=== PATIENT | female | born 1950 | race Caucasian/White ===

== ENCOUNTER 2017-08-29 07:16 | Observation (INO) | payer BC ==
[~2017-08-29] VITALS: Ht 172.7 cm; Wt 74.9 kg
[~2017-08-29 07:16] MED LIST: ARC10 PO; ASPI-435 PO; CETI10TA84 PO; FLUT220A INH; LEVO25TA PO; LVQ750 PO; MULTTAB58 PO; NMN10 PO
[2017-08-29] MEDS ORDERED: ACET-1311 PO ×2 (08:06)
[2017-08-29] MEDS ORDERED: SENN-61 PO (08:06)
[2017-08-29] MEDS ORDERED: MIRT1TAB27 PO (08:06)
[2017-08-29] MEDS ORDERED: MULT-878 PO (08:06)
[2017-08-29] MEDS ORDERED: BISA10SU3 PR (08:06)
[2017-08-29] MEDS ORDERED: FLVHFA110 INH (08:06)
[2017-08-29] MEDS ORDERED: SODIUM CHLORIDE 0.9% 1000ML 1,000 ML IV STA ×2 (08:21→09:50)
--- NOTE | 2017-08-29 08:29 | EMERGENCY ROOM VISIT NOTE ---
History Report prepared by [employer]: Brad Mann Under the Supervision of: Dr. Artemio Lew M.D. First contact with patient: 07:43 Chief Complaint: SEIZURE Stated Complaint: SEIZURE Nursing Triage Summary: Patient from [facility] with reported seizure. Patient is nonverbal with dementia. Patient appears to be in no distress at this time. History of Present Illness The patient is a 67 year old female who presents to the Emergency Room with complaints of an episode of generalized seizure-like activity occurring just prior to arrival. The patient is a resident at [facility]. She has a history of baseline dementia, and is typically non-verbal. She has no known history of seizures. The patient's seizure-like activity today is reported to have lasted for about four minutes. Patient nods "no" to having headache, abdominal pain, neck pain, back pain, or chest pain. HPI limited secondary to dementia. Source of History: patient, nursing staff History Limited By: dementia Onset: Just prior to arrival Position: other (Generalized) Symptom Intensity: Four minutes long Quality: other (seizure-like activity) Timing: other (episode) Associated Symptoms: No headache, No neck pain, No chest pain, No abdominal pain, No back pain Review of Systems ROS limited secondary to dementia. Past Medical & Surgical Medical Problems: (1) Alzheimers disease (2) Dementia (3) Incontinence (4) pneumonia, fall, dementia (5) possible seizure (6) Tremor Family History No pertinent family history Social History Smoking Status: Never Smoker Alcohol Use: none Marital Status: single Housing Status: halfway Occupation Status: disabled Current/Historical Medications Scheduled Acetaminophen (Tylenol), 650 MG PO AMHS Aspirin (Aspirin 81), 81 MG PO QAM Bisacodyl (Dulcolax), 1 SUPP [place] EVERY 3 DAYS Fluticasone Propionate (Flovent Hfa), 1 PUFFS INH BID Levothyroxine Sodium (Synthroid), 25 MCG PO QAM Memantine (Namenda), 10 MG PO AMHS Mirtazapine (Mirtazapine), 7.5 MG PO HS Multivitamins/Minerals (Cerovite Advanced Formula), 1 TAB PO DAILY Senna (Senokot), 3 TAB PO BID Scheduled PRN Acetaminophen (Tylenol), 650 MG PO Q4H PRN for Pain or Fever Allergies Coded Allergies: Latex (Unverified Allergy, Unknown, ., 06/25/15) Sulfadiazine (Unverified Allergy, Unknown, ., 06/25/15) Physical Exam Vital Signs Date Time Temp Pulse Resp B/P (MAP) Pulse Ox O2 Delivery O2 Flow Rate FiO2 08/29/17 09:36 123 16 137/100 94 Room Air 08/29/17 08:37 122 16 124/82 95 Room Air 08/29/17 07:28 37.1 123 23 145/99 95 Room Air Physical Exam GENERAL: Awake, alert, well-appearing, in no distress HENT: Normocephalic, atraumatic. Oropharynx unremarkable. EYES: Normal conjunctiva. Sclera non-icteric. NECK: Supple. No nuchal rigidity. FROM. No masses. RESPIRATORY: Clear to auscultation. No wheezes. CARDIAC: Normal rate. Normal rhythm. No murmurs. No rubs. Extremities warm and well perfused. Pulses equal. No JVD. GI: Soft, non-distended. No tenderness to palpation. No rebound or guarding. No masses. RECTAL: Deferred. MUSCULOSKELETAL: Atraumatic. Chest examination reveals no tenderness. The back is symmetrical on inspection without obvious abnormality. There is no CVA tenderness to palpation. No joint edema. Contracture of the left upper extremity. LOWER EXTREMITIES: Calves are equal size bilaterally and non-tender. No discoloration. Trace lower extremity edema. NEURO: Normal sensorium. No sensory or motor deficits noted. Non-verbal. SKIN: No rash or jaundice noted. Medical Decision & Procedures ER Provider Diagnostic Interpretation: Radiology results as stated below per my review and radiologist interpretation: CT OF THE HEAD WITHOUT CONTRAST FINDINGS: Exam is mildly compromised by motion artifact. No acute intracranial hemorrhage, midline shift or mass effect is present. There is moderate dilatation of the lateral and third ventricles which is proportional to sulcal enlargement and likely due to atrophy. The basilar cisterns are patent. There are no extra axial collections. A 1.3 cm inferior right basal ganglia hypodensity is unchanged and could reflect a prominent vascular space or old lacunar infarct. No calvarial fractures identified. There is an opacified left ethmoid air cell. IMPRESSION: 1. No acute intracranial findings. 2. Ventricular dilatation likely due to atrophy. 3. Study mildly compromised by motion artifact. Electronically signed by: River Vasquez M.D. 08/29/2017 9:07 AM CHEST ONE VIEW PORTABLE FINDINGS: Cardiomediastinal and hilar silhouettes are within normal limits. The patient is slightly rotated to the right. There is no pneumothorax, pleural effusion, focal airspace consolidation or overt pulmonary edema. Lungs are mildly hypoinflated. Bones of the chest appear to be grossly intact. IMPRESSION: Mild hypoinflation without acute process. The above report was generated using voice recognition software. It may contain grammatical, syntax or spelling errors. Electronically signed by: Christiano Patton M.D. 08/29/2017 8:51 AM Laboratory Results 08/29/17 07:25 Red Blood Count 4.30, Mean Corpuscular Volume 93.7, Mean Corpuscular Hemoglobin 30.0, Mean Corpuscular Hemoglobin Concent 32.0, Mean Platelet Volume 8.5, Neutrophils (%) (Auto) 65.1, Lymphocytes (%) (Auto) 25.5, Monocytes (%) (Auto) 5.0, Eosinophils (%) (Auto) 3.6, Basophils (%) (Auto) 0.2, Neutrophils # (Auto) 4.29, Lymphocytes # (Auto) 1.68, Monocytes # (Auto) 0.33, Eosinophils # (Auto) 0.24, Basophils # (Auto) 0.01 08/29/17 07:25 Test 08/29/17 07:25 08/29/17 08:04 White Blood Count 6.59 K/uL (4.8-10.8) Red Blood Count 4.30 M/uL (4.2-5.4) Hemoglobin 12.9 g/dL (12.0-16.0) Hematocrit 40.3 % (37-47) Mean Corpuscular Volume 93.7 fL (80-100) Mean Corpuscular Hemoglobin 30.0 pg (25-34) Mean Corpuscular Hemoglobin Concent 32.0 g/dl (32-36) Platelet Count 294 K/uL (130-400) Mean Platelet Volume 8.5 fL (7.4-10.4) Neutrophils (%) (Auto) 65.1 % Lymphocytes (%) (Auto) 25.5 % Monocytes (%) (Auto) 5.0 % Eosinophils (%) (Auto) 3.6 % Basophils (%) (Auto) 0.2 % Neutrophils # (Auto) 4.29 K/uL (1.4-6.5) Lymphocytes # (Auto) 1.68 K/uL (1.2-3.4) Monocytes # (Auto) 0.33 K/uL (0.11-0.59) Eosinophils # (Auto) 0.24 K/uL (0-0.5) Basophils # (Auto) 0.01 K/uL (0-0.2) RDW Standard Deviation 47.7 fL (36.4-46.3) RDW Coefficient of Variation 14.0 % (11.5-14.5) Immature Granulocyte % (Auto) 0.6 % Immature Granulocyte # (Auto) 0.04 K/uL (0.00-0.02) Prothrombin Time 11.4 SECONDS (9.0-12.0) Prothromb Time International Ratio 1.1 (0.9-1.1) Activated Partial Thromboplast Time 26.1 SECONDS (21.0-31.0) Partial Thromboplastin Ratio 1.0 Anion Gap 8.0 mmol/L (3-11) Est Creatinine Clear Calc Drug Dose 84.1 ml/min Estimated GFR () 100.2 Estimated GFR (Non- 86.4 BUN/Creatinine Ratio 18.4 (10-20) Calcium Level 9.0 mg/dl (8.5-10.1) Magnesium Level 1.9 mg/dl (1.8-2.4) Total Bilirubin 0.4 mg/dl (0.2-1) Direct Bilirubin 0.1 mg/dl (0-0.2) Aspartate Amino Transf (AST/SGOT) 15 U/L (15-37) Alanine Aminotransferase (ALT/SGPT) 15 U/L (12-78) Alkaline Phosphatase 78 U/L (45-117) Total Creatine Kinase 38 U/L (26-192) Creatine Kinase MB 0.7 ng/ml (0.5-3.6) Creatine Kinase MB Ratio 1.8 (0-3.0) Troponin I < 0.015 ng/ml (0-0.045) Total Protein 6.9 gm/dl (6.4-8.2) Albumin 3.2 gm/dl (3.4-5.0) Lipase 144 U/L (73-393) Thyroid Stimulating Hormone (TSH) 2.360 uIu/ml (0.300-4.500) Urine Color YELLOW Urine Appearance CLOUDY (CLEAR) Urine pH 5.5 (4.5-7.5) Urine Specific [place] 1.015 (1.000-1.030) Urine Protein 1+ (NEG) Urine Glucose (UA) NEG (NEG) Urine Ketones NEG (NEG) Urine Occult Blood TRACE (NEG) Urine Nitrite POS (NEG) Urine Bilirubin NEG (NEG) Urine Urobilinogen NEG (NEG) Urine Leukocyte Esterase LARGE (NEG) Urine WBC (Auto) >30 /hpf (0-5) Urine RBC (Auto) 5-10 /hpf (0-4) Urine Hyaline Casts (Auto) 5-10 /lpf (0-5) Urine Epithelial Cells (Auto) 0-5 /lpf (0-5) Urine Bacteria (Auto) 4+ (NEG) Laboratory results reviewed by me Medications Administered Medications (Trade) Dose Ordered Sig/Don Route Start Time Stop Time Status Last Admin Dose Admin Sodium Chloride 1,000 ml @ 125 mls/hr Q8H STAT IV 08/29/17 08:21 08/29/17 14:05 DC 08/29/17 08:21 125 MLS/HR Sodium Chloride 1,000 ml @ 999 mls/hr Q1H1M STAT IV 08/29/17 09:50 08/29/17 10:50 DC 08/29/17 09:50 999 MLS/HR Ceftriaxone Sodium (Rocephin Inj) 1 gm NOW STAT IV 08/29/17 09:50 08/29/17 09:52 DC 08/29/17 10:04 1 GM ECG Per My Interpretation Indication: other (seizure-like activity) Rate (beats per minute): 126 Rhythm: sinus tachycardia Findings: PVC, no acute ischemic change ED Course 0802: The patient was evaluated in room A3. A complete history and physical exam was performed. 0821: Ordered Sodium Chloride 1000 ml @ 125 mls/hr IV. 0950: Ordered Rocephin Inj 1 gm IV, Sodium Chloride 1000 ml @ 999 mls/hr IV. 1009: Upon reexamination, the patient was resting comfortably. Her friend has arrived and is at bedside. The patient's POA is being contacted. I discussed the test results and treatment plan with her. The patient will be evaluated for further management. Medical Decision Prior records/ancillary studies reviewed and summarized above. Nursing notes reviewed and agree them. Additional history obtained from nursing. The patient's history was concerning for possible seizure. Differential diagnosis: Etiologies such as seizure disorder, infection, hypoglycemia, electrolyte abnormalities, cardiac sources, intracerebral event, toxicologic, neurologic, as well as others were entertained. Physical examination: As above. The patient is nonverbal. Abdomen was benign. ER treatment provided: IV Lock Normal saline hydration at 125 an hour. IV Rocephin On reassessment the patient felt better. Diagnostics interpretation by me: ECG: Sinus tachycardia noted. The labs revealed an unremarkable CBC and chemistry panel. Urinalysis grossly abnormal concerning for infection. Imaging studies: CT scan and chest x-ray as above. The patient had a seizure like episode described at her nursing facility. She has a UTI. She has mild tachycardia. She had a benign abdomen. She denied any headache. Further evaluation and management in the hospital will be necessary. Consultation: A consultation was placed with the hospitalist. The case was discussed and diagnostics were reviewed. The patient was evaluated in the ER for further treatment. Medication Reconcilliation Current Medication List: was personally reviewed by me Blood Pressure Screening Patient's blood pressure: Normal blood pressure Blood pressure disposition: Did not require urgent referral Consults Time Called: 1000 Consulting Physician: Dr. Corinna Cunha [facility] Hospitalist Returned Call: [phone] Discussed the patient's case. The patient will be evaluated for further treatment and disposition. Impression Primary Impression: UTI (urinary tract infection) Additional Impression: Seizure-like activity Scribe Attestation The scribe's documentation has been prepared under my direction and personally reviewed by me in its entirety. I confirm that the note above accurately reflects all work, treatment, procedures, and medical decision making performed by me. Departure Information Dispostion Being Evaluated By Hospitalist Referrals Ondina Joseph M.D. (PCP) Patient Instructions My [facility] Problem Qualifiers
[2017-08-29 08:33] LABS: BASO % 0.2 %; BASO ABS # 0.01 K/uL (0-0.2); EOS % 3.6 %; EOS ABS # 0.24 K/uL (0-0.5); HEMATOCRIT 40.3 % (37-47); HEMOGLOBIN 12.9 g/dL (12.0-16.0); IG# 0.04 K/uL (0.00-0.02); LYMPH % 25.5 %; LYMPH ABS # 1.68 K/uL (1.2-3.4); MEAN CELL VOLUME 93.7 fL (80-100); MEAN PLATELET VOLUME 8.5 fL (7.4-10.4); MONO ABS # 0.33 K/uL (0.11-0.59); NEUT % 65.1 %; NEUT ABS # 4.29 K/uL (1.4-6.5); PLATELET COUNT 294 K/uL (130-400); RED CELL DISTRIBUTION WIDTH SD 47.7 fL (36.4-46.3); WHITE BLOOD COUNT 6.59 K/uL (4.8-10.8)
[2017-08-29 08:43] LABS: INR 1.1 (0.9-1.1); PTT PATIENT 26.1 SECONDS (21.0-31.0)
[2017-08-29 08:50] LABS: ALBUMIN 3.2 gm/dl (3.4-5.0); ALT/SGPT 15 U/L (12-78); BLOOD UREA NITROGEN 14 mg/dl (7-18); CARBON DIOXIDE 29 mmol/L (21-32); CREATININE 0.73 mg/dl (0.60-1.20); GLUCOSE 111 mg/dl (70-99); LIPASE 144 U/L (73-393); POTASSIUM 3.6 mmol/L (3.5-5.1); SODIUM 141 mmol/L (136-145)
--- NOTE | 2017-08-29 08:52 | DIAGNOSTIC IMAGING REPORT ---
CHEST ONE VIEW PORTABLE HISTORY: 67 years-old Female EVALUATE WEAKNESS acute weakness with seizure COMPARISON: Chest radiographs 06/27/2015 TECHNIQUE: Portable AP view of the chest FINDINGS: Cardiomediastinal and hilar silhouettes are within normal limits. The patient is slightly rotated to the right. There is no pneumothorax, pleural effusion, focal airspace consolidation or overt pulmonary edema. Lungs are mildly hypoinflated. Bones of the chest appear to be grossly intact. IMPRESSION: Mild hypoinflation without acute process. The above report was generated using voice recognition software. It may contain grammatical, syntax or spelling errors. Electronically signed by: Christiano Patton M.D. 08/29/2017 8:51 AM Dictated Date/Time: 08/29/2017 8:50 AM
[2017-08-29 08:59] LABS: ALKALINE PHOSPHATASE 78 U/L (45-117); AST/SGOT 15 U/L (15-37); CKMB 0.7 ng/ml (0.5-3.6); TOTAL PROTEIN 6.9 gm/dl (6.4-8.2)
--- NOTE | 2017-08-29 09:08 | DIAGNOSTIC IMAGING REPORT ---
CT OF THE HEAD WITHOUT CONTRAST CLINICAL HISTORY: Weakness. Seizure. COMPARISON STUDY: MRI of the brain June 22, [address] June 25, 2015. CT DOSE: 795.47 mGy.cm TECHNIQUE: Helical axial images of the head were obtained without IV contrast. Automated exposure control was utilized for the study. A dose lowering technique was utilized adhering to the principles of ALARA. FINDINGS: Exam is mildly compromised by motion artifact. No acute intracranial hemorrhage, midline shift or mass effect is present. There is moderate dilatation of the lateral and third ventricles which is proportional to sulcal enlargement and likely due to atrophy. The basilar cisterns are patent. There are no extra axial collections. A 1.3 cm inferior right basal ganglia hypodensity is unchanged and could reflect a prominent vascular space or old lacunar infarct. No calvarial fractures identified. There is an opacified left ethmoid air cell. IMPRESSION: 1. No acute intracranial findings. 2. Ventricular dilatation likely due to atrophy. 3. Study mildly compromised by motion artifact. Electronically signed by: River Vasquez M.D. 08/29/2017 9:07 AM Dictated Date/Time: 08/29/2017 9:03 AM
[2017-08-29] MEDS ORDERED: CEFTRIAXONE SOD INJ 1 GM ADDVIAL IV STA (09:50)
[2017-08-29] MEDS ORDERED: LORAZEPAM 2 MG/ML 1 ML VIAL IV PRN ×2 (10:45)
[2017-08-29] MEDS ORDERED: ACETAMINOPHEN 325 MG TAB PO PRN (10:45)
[2017-08-29] MEDS ORDERED: IV FLUIDS COMPLETED PRN (11:00)
--- NOTE | 2017-08-29 11:00 | History and Physical ---
History & Physical Date & Time of Service: Aug 29, 2017 at 10:54 Chief Complaint: Seizure Primary Care Physician: Ondina Joseph M.D. History of Present Illness Patient is transferred from [facility] with concern for seizure-like activity. The patient's friend is at the bedside and provides some information that she had a similar episode a few months ago when she is being transferred. 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 The patient's caregiver also notes that she has had a decline of late and medications have been withdrawn there have not been a formal discussion for palliative care at this time. Reportedly the patient had an episode of tonic-clonic movements at the nursing facility was not acting quite like herself. She is mostly nonverbal and a good day but she can nod and smile when appropriate. The patient cannot focally identify any issues or complaints at this time. An ER evaluation only revealed an abnormal urinalysis and the patient was given Rocephin and hydration Family History No pertinent family history Social History Smoking Status: Never Smoker Marital Status: single Occupational Status: disabled Allergies Coded Allergies: Latex (Unverified Allergy, Unknown, ., 06/25/15) Sulfadiazine (Unverified Allergy, Unknown, ., 06/25/15) Home Medications Scheduled Acetaminophen (Tylenol), 650 MG PO AMHS Aspirin (Aspirin 81), 81 MG PO QAM Bisacodyl (Dulcolax), 1 SUPP [place] EVERY 3 DAYS Fluticasone Propionate (Flovent Hfa), 1 PUFFS INH BID Levothyroxine Sodium (Synthroid), 25 MCG PO QAM Memantine (Namenda), 10 MG PO AMHS Mirtazapine (Mirtazapine), 7.5 MG PO HS Multivitamins/Minerals (Cerovite Advanced Formula), 1 TAB PO DAILY Senna (Senokot), 3 TAB PO BID Scheduled PRN Acetaminophen (Tylenol), 650 MG PO Q4H PRN for Pain or Fever Review of Systems Review of systems are unobtainable at this time due to the patient's nonverbal state, the patient's caregiver states that as mentioned she has been declining in her performance status and been taking less medications she is mildly incontinent of urine most days and constipated requiring significant bowel regimen Physical Exam Vital Signs Date Time Temp Pulse Resp B/P (MAP) Pulse Ox O2 Delivery O2 Flow Rate FiO2 08/29/17 09:36 123 16 137/100 94 Room Air 08/29/17 08:37 122 16 124/82 95 Room Air 08/29/17 07:28 37.1 123 23 145/99 95 Room Air General Appearance: WD/WN, no apparent distress Head: normocephalic, atraumatic Eyes: normal inspection, sclerae normal Neck: supple, thyroid normal Respiratory/Chest: chest non-tender, lungs clear (The patient has decreased breath sounds difficult to sit up and listen to her back) Cardiovascular: regular rate, rhythm, no murmur Abdomen/GI: normal bowel sounds, non tender, soft Extremities/Musculoskelatal: normal capillary refill, no pedal edema Neurologic/Psych: alert, + pertinent finding (Patient is nonverbal she can smile and nod) Skin: normal color, warm/dry, no rash Diagnostics Laboratory Results Results Past 24 Hours Test 08/29/17 07:25 08/29/17 08:04 Range/Units White Blood Count 6.59 4.8-10.8 K/uL Red Blood Count 4.30 4.2-5.4 M/uL Hemoglobin 12.9 12.0-16.0 g/dL Hematocrit 40.3 37-47 % Mean Corpuscular Volume 93.7 80-100 fL Mean Corpuscular Hemoglobin 30.0 25-34 pg Mean Corpuscular Hemoglobin Concent 32.0 32-36 g/dl Platelet Count 294 130-400 K/uL Mean Platelet Volume 8.5 7.4-10.4 fL Neutrophils (%) (Auto) 65.1 % Lymphocytes (%) (Auto) 25.5 % Monocytes (%) (Auto) 5.0 % Eosinophils (%) (Auto) 3.6 % Basophils (%) (Auto) 0.2 % Neutrophils # (Auto) 4.29 1.4-6.5 K/uL Lymphocytes # (Auto) 1.68 1.2-3.4 K/uL Monocytes # (Auto) 0.33 0.11-0.59 K/uL Eosinophils # (Auto) 0.24 0-0.5 K/uL Basophils # (Auto) 0.01 0-0.2 K/uL RDW Standard Deviation 47.7 36.4-46.3 fL RDW Coefficient of Variation 14.0 11.5-14.5 % Immature Granulocyte % (Auto) 0.6 % Immature Granulocyte # (Auto) 0.04 0.00-0.02 K/uL Prothrombin Time 11.4 9.0-12.0 SECONDS Prothromb Time International Ratio 1.1 0.9-1.1 Activated Partial Thromboplast Time 26.1 21.0-31.0 SECONDS Partial Thromboplastin Ratio 1.0 Sodium Level 141 136-145 mmol/L Potassium Level 3.6 3.5-5.1 mmol/L Chloride Level 104 98-107 mmol/L Carbon Dioxide Level 29 21-32 mmol/L Anion Gap 8.0 3-11 mmol/L Blood Urea Nitrogen 14 7-18 mg/dl Creatinine 0.73 0.60-1.20 mg/dl Est Creatinine Clear Calc Drug Dose 84.1 ml/min Estimated GFR () 100.2 Estimated GFR (Non- 86.4 BUN/Creatinine Ratio 18.4 10-20 Random Glucose 111 70-99 mg/dl Calcium Level 9.0 8.5-10.1 mg/dl Magnesium Level 1.9 1.8-2.4 mg/dl Total Bilirubin 0.4 0.2-1 mg/dl Direct Bilirubin 0.1 0-0.2 mg/dl Aspartate Amino Transf (AST/SGOT) 15 15-37 U/L Alanine Aminotransferase (ALT/SGPT) 15 12-78 U/L Alkaline Phosphatase 78 45-117 U/L Total Creatine Kinase 38 26-192 U/L Creatine Kinase MB 0.7 0.5-3.6 ng/ml Creatine Kinase MB Ratio 1.8 0-3.0 Troponin I < 0.015 0-0.045 ng/ml Total Protein 6.9 6.4-8.2 gm/dl Albumin 3.2 3.4-5.0 gm/dl Lipase 144 73-393 U/L Thyroid Stimulating Hormone (TSH) 2.360 0.300-4.500 uIu/ml Urine Color YELLOW Urine Appearance CLOUDY CLEAR Urine pH 5.5 4.5-7.5 Urine Specific [place] 1.015 1.000-1.030 Urine Protein 1+ NEG Urine Glucose (UA) NEG NEG Urine Ketones NEG NEG Urine Occult Blood TRACE NEG Urine Nitrite POS NEG Urine Bilirubin NEG NEG Urine Urobilinogen NEG NEG Urine Leukocyte Esterase LARGE NEG Urine WBC (Auto) >30 0-5 /hpf Urine Hyaline Casts (Auto) 5-10 0-5 /lpf Urine Epithelial Cells (Auto) 0-5 0-5 /lpf Urine Bacteria (Auto) 4+ NEG Microbiology Results 08/29/17 Urine Culture, Received Pending Diagnostic Radiology CT head normal with only age-related changes CXR normal other (EKG shows sinus tachycardia) Impression Assessment and Plan 67-year-old female with advanced dementia for her age she is now mostly nonverbal and functionally quadriparetic. The patient presents with seizure- like activity and abnormal urinalysis suggesting a urinary tract UTI POA infection present on admission Cultures are obtained patient is on IV Rocephin she will be hydrated with additional liter of crystalloid solution monitoring her CBC for leukocytosis For her dementia she will continue on her Namenda as previously at the long term For depression she is on extremely low dose of Remeron this will be continued For her functional quadriparesis the patient requires a Etta lift and fall precautions will be undertaken The patient will be on heparin for DVT prevention Patient is a history of asthma this is been stable for sometimes will continue to offer her her inhalers I asked the caregiver if palliative care would be in order she says she is just a caregiver her brother is power of propeller engineer this may offer us an opportunity for palliative care or polst Resuscitation Status VTE Prophylaxis Will order VTE Prophylaxis: Yes Social Service Consult Lives in Correction
[2017-08-29] MEDS ORDERED: LORAZEPAM INJ 0.5 MG in SYRINGE 0.75 ML IV PRN (14:00)
[2017-08-29] MEDS ORDERED: LORAZEPAM INJ 1 MG in SYRINGE 0.5 ML IV PRN (14:00)
[2017-08-29] MEDS ORDERED: SODIUM CHLORIDE 0.9% 1000ML 1,000 ML IV SCH (14:15)
[2017-08-29 14:20] VITALS: BP 131/71; PULSE 120; TEMP 37.4; O2SAT 94
[2017-08-29 14:22] VITALS: O2SAT 94; BMI 26.0
[2017-08-29 15:30] VITALS: BP 124/81; PULSE 109; TEMP 37; O2SAT 93
[2017-08-29 16:10] VITALS: O2SAT 93
[2017-08-29] MEDS: BOOST VANILLA PO SCH (21:39)
[2017-08-29] MEDS: FLUTICASONE HFA 110MCG INHALER INH SCH (21:40)
[2017-08-29] MEDS: SENNA 8.6 MG TAB PO SCH (21:42)
[2017-08-29] MEDS: MEMANTINE 10 MG TAB PO SCH (21:42)
[2017-08-29] MEDS: MIRTAZAPINE TAB 15 MG TAB PO SCH (21:42)
[2017-08-29] MEDS: HEPARIN SOD 5000 UNIT/0.5 ML CARP SQ SCH (22:05)
[2017-08-29 23:15] VITALS: BP 166/80; PULSE 98; TEMP 37.3; O2SAT 96
[2017-08-30] MEDS: LEVOTHYROXINE 25 MCG TAB PO SCH (05:58)
[2017-08-30 08:08] LABS: HEMATOCRIT 37.1 % (37-47); HEMOGLOBIN 12.1 g/dL (12.0-16.0); MEAN CELL VOLUME 92.3 fL (80-100); MEAN CORPUSCULAR HEMOGLOBIN 30.1 pg (25-34); MEAN CORPUSCULAR HGB CONC 32.6 g/dl (32-36); MEAN PLATELET VOLUME 8.3 fL (7.4-10.4); PLATELET COUNT 268 K/uL (130-400); RED CELL DISTRIBUTION WIDTH CV 13.8 % (11.5-14.5); RED CELL DISTRIBUTION WIDTH SD 46.8 fL (36.4-46.3); WHITE BLOOD COUNT 8.54 K/uL (4.8-10.8)
[2017-08-30 08:41] LABS: CALCIUM 8.6 mg/dl (8.5-10.1); CREATININE 0.59 mg/dl (0.60-1.20); POTASSIUM 3.9 mmol/L (3.5-5.1)
[2017-08-30 08:53] VITALS: BP 139/81; PULSE 95; TEMP 37.6; O2SAT 94
[2017-08-30] MEDS: BOOST VANILLA PO SCH ×2 (09:00→21:00)
--- NOTE | 2017-08-30 09:15 | Hospitalist Progress Note ---
Hospitalist Progress Note Date of Service Aug 30, 2017. Subjective Pt evaluation today including: conversation w/ patient, physical exam, chart review, lab review, review of studies Pain: None PO Intake: Requires assistance Voiding: no voiding problems The patient was seen and examined this morning. Pt is unable to verbalize much at baseline. She is able to say yes and no to some of my questions. She denies any new pain, chest pain or trouble breathing. She is having muscle spasms in her legs which she says "ouch" to when it occurs. Attempted to contact pts brother to give update to via phone at 1410 however there was no answer. Also attempted to call Marivel (listed as friend) in EMR however also no answer. Will try again later today. Objective Vital Signs Date Time Temp Pulse Resp B/P (MAP) Pulse Ox O2 Delivery O2 Flow Rate FiO2 08/30/17 08:53 37.6 95 12 139/81 (100) 94 Room Air 08/30/17 00:20 Room Air 08/29/17 23:15 37.3 98 15 166/80 (108) 96 Room Air 08/29/17 16:10 93 Room Air 08/29/17 15:30 37.0 109 17 124/81 (95) 93 Room Air 08/29/17 14:22 94 Room Air 08/29/17 14:20 37.4 120 16 131/71 (91) 94 Room Air 08/29/17 12:00 121 20 134/96 94 Room Air 08/29/17 11:00 126 20 134/105 93 08/29/17 09:36 123 16 137/100 94 Room Air Physical Exam General Appearance: WD/WN, no apparent distress, + thin, + pertinent finding ( functional quadraplegic+) Eyes: PERRL, EOMI ENT: hearing grossly normal, pharynx normal Neck: supple, no JVD Respiratory/Chest: lungs clear, no respiratory distress, no accessory muscle use Cardiovascular: regular rate, rhythm, no murmur Abdomen: normal bowel sounds, non tender, soft Extremities: no calf tenderness, + pertinent finding (in waffle boots with pillows positioning. ) Neurologic/Psychiatric: alert, + pertinent finding (unable to speak more than yes or no to my questions, follows commands to take deep breaths, ) Skin: normal color, warm/dry Laboratory Results Last 24 Hours Test 08/30/17 07:49 White Blood Count 8.54 K/uL Red Blood Count 4.02 M/uL Hemoglobin 12.1 g/dL Hematocrit 37.1 % Mean Corpuscular Volume 92.3 fL Mean Corpuscular Hemoglobin 30.1 pg Mean Corpuscular Hemoglobin Concent 32.6 g/dl RDW Standard Deviation 46.8 fL RDW Coefficient of Variation 13.8 % Platelet Count 268 K/uL Mean Platelet Volume 8.3 fL Sodium Level 138 mmol/L Potassium Level 3.9 mmol/L Chloride Level 105 mmol/L Carbon Dioxide Level 25 mmol/L Anion Gap 7.0 mmol/L Blood Urea Nitrogen 11 mg/dl Creatinine 0.59 mg/dl Est Creatinine Clear Calc Drug Dose 95.9 ml/min Estimated GFR () 111.5 Estimated GFR (Non- 96.2 BUN/Creatinine Ratio 18.4 Random Glucose 109 mg/dl Calcium Level 8.6 mg/dl Assessment and Plan 67 yo F with advanced dementia for her age she is now mostly nonverbal and functionally quadriparetic. The patient presents with seizure-like activity and abnormal urinalysis suggesting a urinary tract UTI POA infection present on admission Possible UTI, meets SIRS criteria with temp, tachycardia, dirty UA and altered mental status with seizure like activity upon admission. - Admitted to med/surg - UA with large esterase, 4+ bacteria - Follow Ucx--> growing gram neg bacilli, follow BCx in process - Rocephin IV started on 08/29 - Overnight had low grade temp at 37.6 - WBC 8.54, follow cbc - IVFs with NSS + Kcl 125 ml/hr Advanced dementia - continue Namenda as previously at the care home Depression - continue low dose of Remeron as per SNF - may also be helping with sleep at night. Functional quadriparesis - patient requires a Etta lift and fall precautions will be undertaken Hx asthma this is been stable for sometimes will continue to offer her her inhalers DVT ppx: heparin subq Disposition: Palliative care should be discussed during admission. Attempted to call the Brother however no answer, will attempt again later at least to update him Pt is a bed hold at [facility], if good for discharge she is able to leave over the weekend.
[2017-08-30] MEDS: ASPIRIN 81 MG ECTAB PO SCH (10:26)
[2017-08-30] MEDS: MEMANTINE 10 MG TAB PO SCH ×2 (10:27→21:30)
[2017-08-30] MEDS: SENNA 8.6 MG TAB PO SCH ×2 (10:27→21:00)
[2017-08-30] MEDS: HEPARIN SOD 5000 UNIT/0.5 ML CARP SQ SCH ×2 (10:28→21:29)
[2017-08-30] MEDS: CEFTRIAXONE SOD INJ 1 GM in DEXTROSE 5% ADD-VANTAGE 50ML 50 ML IV SCH (10:32)
[2017-08-30] MEDS: FLUTICASONE HFA 110MCG INHALER INH SCH ×2 (10:32→21:00)
[2017-08-30 10:42] VITALS: O2SAT 94
[2017-08-30 14:30] VITALS: Ht 172.7 cm; Wt 74.9 kg
[2017-08-30 15:08] VITALS: BP 132/80; PULSE 83; TEMP 36.9; O2SAT 97
[2017-08-30 19:35] VITALS: O2SAT 97
[2017-08-30] MEDS: MIRTAZAPINE TAB 15 MG TAB PO SCH (21:00)
[2017-08-30 22:50] VITALS: BP 157/85; PULSE 82; TEMP 36.3; O2SAT 97
[2017-08-31] MEDS: LEVOTHYROXINE 25 MCG TAB PO SCH (06:04)
[2017-08-31 07:24] VITALS: BP 133/91; PULSE 95; TEMP 36.9; O2SAT 96
[2017-08-31] MEDS: ASPIRIN 81 MG ECTAB PO SCH (09:15)
[2017-08-31] MEDS: FLUTICASONE HFA 110MCG INHALER INH SCH ×2 (09:15→20:48)
[2017-08-31] MEDS: MEMANTINE 10 MG TAB PO SCH ×2 (09:15→20:50)
[2017-08-31] MEDS: SENNA 8.6 MG TAB PO SCH ×2 (09:15→20:50)
[2017-08-31] MEDS: CEFTRIAXONE SOD INJ 1 GM in DEXTROSE 5% ADD-VANTAGE 50ML 50 ML IV SCH (09:15)
[2017-08-31] MEDS: BOOST VANILLA PO SCH ×2 (09:18→20:48)
[2017-08-31] MEDS: HEPARIN SOD 5000 UNIT/0.5 ML CARP SQ SCH ×2 (09:19→21:06)
[2017-08-31 15:42] VITALS: BP 118/66; PULSE 96; TEMP 36.9; O2SAT 94
[2017-08-31] MEDS: MIRTAZAPINE TAB 15 MG TAB PO SCH (20:53)
[2017-08-31 22:56] VITALS: BP 148/96; PULSE 91; TEMP 36.6; O2SAT 96
[2017-09-01] MEDS: LEVOTHYROXINE 25 MCG TAB PO SCH (05:13)
[2017-09-01 07:34] VITALS: BP 147/93; PULSE 98; TEMP 37; O2SAT 98
[2017-09-01 08:04] LABS: HEMATOCRIT 38.3 % (37-47); HEMOGLOBIN 12.6 g/dL (12.0-16.0); MEAN CELL VOLUME 91.2 fL (80-100); MEAN CORPUSCULAR HGB CONC 32.9 g/dl (32-36); MEAN PLATELET VOLUME 8.1 fL (7.4-10.4); PLATELET COUNT 241 K/uL (130-400); RED CELL DISTRIBUTION WIDTH CV 13.9 % (11.5-14.5); RED CELL DISTRIBUTION WIDTH SD 45.9 fL (36.4-46.3)
--- NOTE | 2017-09-01 08:26 | Progress Note ---
Subjective Date of Service: Aug 31, 2017. Subjective Pt evaluation today including: conversation w/ patient Patient seen at 17:00 on August 31 2017. Patient remains non verbal. But she opens here eyes with verbal stimuli. Patient also has been taking her medicine orally and has been afebrile. Unable to obtain history due to severe dementia. Problem List Medical Problems: (1) Altered mental status Status: Acute (2) Pneumonia Status: Acute (3) Rhabdomyolysis Status: Acute (4) Seizure-like activity Status: Acute (5) UTI (urinary tract infection) Status: Acute Review of Systems All Other Systems: Reviewed and Negative Medications Current Inpatient Medications Medications (Trade) Dose Ordered Sig/Don Route Start Time Stop Time Status Last Admin Dose Admin Aspirin (Ecotrin Tab) 81 mg QAM PO 08/30/17 09:00 09/29/17 08:59 09/01/17 09:09 81 MG Fluticasone Propionate (Flovent Hfa 110MCG Inhaler) 1 puffs BID INH 08/29/17 21:00 09/28/17 20:59 09/01/17 09:08 1 PUFFS Levothyroxine Sodium (Synthroid Tab) 25 mcg DAILYBB PO 08/30/17 06:00 09/29/17 05:59 09/01/17 05:13 25 MCG Memantine (Namenda Tab) 10 mg AMHS PO 08/29/17 21:00 09/28/17 20:59 09/01/17 09:09 10 MG Senna (Senokot Tab) 25.8 mg BID PO 08/29/17 21:00 09/28/17 20:59 09/01/17 09:09 25.8 MG Mirtazapine (Remeron Tab) 7.5 mg HS PO 08/29/17 21:00 09/28/17 20:59 08/31/17 20:53 7.5 MG Acetaminophen (Tylenol Tab) 650 mg Q4H PRN PO 08/29/17 10:45 09/28/17 10:44 08/30/17 06:03 650 MG Heparin Sodium (Porcine) (Heparin Sq 5000 Unit/0.5ml) 5,000 unit Q12 SQ 08/29/17 21:00 09/28/17 20:59 09/01/17 09:17 5,000 UNIT Ceftriaxone Sodium 1 gm/ Dextrose 50 ml @ 100 mls/hr Q24H IV 08/30/17 10:00 09/03/17 09:59 09/01/17 10:18 100 MLS/HR Lorazepam (Ativan Inj) 0.5 mg Q4H PRN IV 08/29/17 10:45 09/28/17 10:44 Lorazepam (Ativan Inj) 1 mg Q4H PRN IV 08/29/17 10:45 09/28/17 10:44 Enteral Nutritional Formula (Boost) 1 can BID PO 08/29/17 21:00 09/28/17 20:59 09/01/17 09:00 1 CAN Miscellaneous (Iv Fluids Completed) 1 ea PRN PRN N/A 08/29/17 11:00 08/29/18 10:59 Lorazepam 0.5 mg/ Syringe 1 ml @ 1 mls/min Q4H PRN IV 08/29/17 14:00 09/28/17 13:59 Lorazepam 1 mg/ Syringe 1 ml @ 1 mls/min Q4H PRN IV 08/29/17 14:00 09/28/17 13:59 Objective Vital Signs Date Time Temp Pulse Resp B/P (MAP) Pulse Ox O2 Delivery O2 Flow Rate FiO2 09/01/17 07:34 37.0 98 18 147/93 (111) 98 Room Air 08/31/17 23:40 Room Air 08/31/17 22:56 36.6 91 17 148/96 (113) 96 Room Air 08/31/17 15:42 36.9 96 16 118/66 (83) 94 Room Air 08/31/17 15:35 Room Air Physical Exam Comments: General Appearance: WD/WN, no apparent distress, + thin, + pertinent finding ( functional quadraplegic+) Eyes: PERRL, EOMI ENT: hearing grossly normal, pharynx normal Neck: supple, no JVD Respiratory/Chest: lungs clear, no respiratory distress, no accessory muscle use Cardiovascular: regular rate, rhythm, no murmur Abdomen: normal bowel sounds, non tender, soft Extremities: no calf tenderness, + pertinent finding (in waffle boots with pillows positioning. ) Neurologic/Psychiatric: alert, + pertinent finding (unable to speak more than yes or no to my questions, follows commands to take deep breaths, ) Skin: normal color, warm/dry Laboratory Results Last 24 Hours Test 09/01/17 07:52 White Blood Count 7.10 K/uL Red Blood Count 4.20 M/uL Hemoglobin 12.6 g/dL Hematocrit 38.3 % Mean Corpuscular Volume 91.2 fL Mean Corpuscular Hemoglobin 30.0 pg Mean Corpuscular Hemoglobin Concent 32.9 g/dl RDW Standard Deviation 45.9 fL RDW Coefficient of Variation 13.9 % Platelet Count 241 K/uL Mean Platelet Volume 8.1 fL Assessment and Plan 67 yo F with advanced dementia for her age she is now mostly nonverbal and functionally quadriparetic. The patient presents with seizure-like activity and abnormal urinalysis suggesting a urinary tract UTI POA infection present on admission Possible UTI, meets SIRS criteria with temp, tachycardia, dirty UA and altered mental status with seizure like activity upon admission. - Admitted to med/surg -Patient is being treated with antibiotics - UA with large esterase, 4+ bacteria - Follow Ucx--> e. coli sensitve to cephalsporins. - Rocephin IV started on 08/29 - Fever has subsided - off fluids Advanced dementia - continue Nam[facility] Depression - continue low dose of Remeron as per SNF - may also be helping with sleep at night. Functional quadriparesis - patient requires a Etta lift and fall precautions will be undertaken Hx asthma this is been stable for sometimes will continue to offer her her inhalers DVT ppx: heparin subq Disposition: Palliative care should be discussed during admission, but unable to reach brother. Again, I attempted to call the Brother however no answer, will attempt again later at least to update him Pt is a bed hold at [facility], if good for discharge she is able to leave over the weekend. Continued [facility] stay due to: other (palliative care should be discussed)
[2017-09-01 08:38] LABS: CREATININE 0.58 mg/dl (0.60-1.20); POTASSIUM 3.8 mmol/L (3.5-5.1)
[2017-09-01] MEDS: BOOST VANILLA PO SCH (09:00)
[2017-09-01] MEDS: FLUTICASONE HFA 110MCG INHALER INH SCH (09:08)
[2017-09-01] MEDS: SENNA 8.6 MG TAB PO SCH (09:09)
[2017-09-01] MEDS: MEMANTINE 10 MG TAB PO SCH (09:09)
[2017-09-01] MEDS: ASPIRIN 81 MG ECTAB PO SCH (09:09)
[2017-09-01] MEDS: HEPARIN SOD 5000 UNIT/0.5 ML CARP SQ SCH (09:17)
[2017-09-01] MEDS: CEFTRIAXONE SOD INJ 1 GM in DEXTROSE 5% ADD-VANTAGE 50ML 50 ML IV SCH (10:18)
[2017-09-01] MEDS ORDERED: NITR-5 PO (15:07)
--- NOTE | 2017-09-01 15:09 | Discharge Instructions ---
Discharge Instructions Date of Service Sep 01, 2017. Admission Reason for Admission: Possible Seizure Discharge Discharge Diagnosis / Problem: Metabolic encephalopathy Discharge Goals Goal(s): Decrease discomfort Activity Recommendations Activity Limitations: resume your previous activity . Instructions / Follow-Up Instructions / Follow-Up Follwup with PCP in 1 week. Discussed case with POA. Will discuss goals of care with Rufina in regards to see if patient will return to hospital if she gets sick again. Patient is DNR and does not want life prolonging measures. Current Hospital Diet Patient's current hospital diet: Regular Diet Discharge Diet Recommended Diet: Regular Diet Pending Studies Studies pending at discharge: no Medical Emergencies . Who to Call and When: Medical Emergencies: If at any time you feel your situation is an emergency, please call 911 immediately. . Non-Emergent Contact Non-Emergency issues call your: Primary Care Provider Call Non-Emergent contact if: temperature is above 100.5, you have any medication questions . . "Provider Documentation" section prepared by Emigdio Webb. .
[2017-09-01 15:15] VITALS: BP 147/93; PULSE 98; TEMP 37; O2SAT 98
[2017-09-01 15:21] VITALS: BP 146/81; PULSE 116; TEMP 36.7; O2SAT 92
[2017-09-01] MEDS ORDERED: NITROFURANTOIN MONOHYDRATE 100 MG CAP PO SCH (21:00)
== END 2017-09-01 16:30 ==
LOC: EDBD 07:16 → C.EDA 07:18 → C.MSN 10:38 → EDBEDREQ 10:59 → ENRESERV 13:18
PROVIDERS: ADMIT Internal Medicine; ATTEND Internal Medicine
DX: N39.0 Urinary tract infection, site not specified (principal); G93.41 Metabolic encephalopathy; R56.9 Unspecified convulsions; R00.0 Tachycardia, unspecified; G30.9 Alzheimer's disease, unspecified; F02.80 Dementia in other diseases classified elsewhere, unspecified severity, without behavioral disturbance, psychotic disturbance, mood disturbance, and anxiety; F32.9 Major depressive disorder, single episode, unspecified; G82.50 Quadriplegia, unspecified; R25.1 Tremor, unspecified; J45.909 Unspecified asthma, uncomplicated; Z66 Do not resuscitate; Z91.040 Latex allergy status; Z88.2 Allergy status to sulfonamides; Z79.82 Long term (current) use of aspirin; Z87.01 Personal history of pneumonia (recurrent)

== ENCOUNTER 2017-09-08 07:12 | Emergency (ER) | payer BC ==
[~2017-09-08 07:12] MED LIST changes: +ACET-1311 PO; -ARC10 PO; +BISA10SU3 PR; -CETI10TA84 PO; -FLUT220A INH; +FLVHFA110 INH; -LVQ750 PO; +MIRT1TAB27 PO; +MULT-878 PO; -MULTTAB58 PO; +NITR-5 PO; +SENN-61 PO
[2017-09-08 07:15] VITALS: TEMP 36.6; O2SAT 94
[2017-09-08] MEDS ORDERED: LEVETIRACETAM IV 1,000 MG in DEXTROSE 5% 100ML 100 ML IV STA (07:21)
--- NOTE | 2017-09-08 07:32 | EMERGENCY ROOM VISIT NOTE ---
History Report prepared by Lexx: Roberto Vee Under the Supervision of: Dr. Kenny Blum M.D. First contact with patient: 07:16 Stated Complaint: SEIZURE History of Present Illness HPI is limited due to an altered mental state secondary to Alzheimer's. The patient is a 67 year old female who presents to the Emergency Room with complaints of a recent seizure. Patient is from [facility]. Nurse states the patient's seizure lasted 10 minutes. Patient was frothing at the mouth with pursed lips and abdominal bleeding during the episode. Patient was seen at the ER 1-2 weeks ago for similar symptoms where she was diagnosed with a UTI. Pertinent past medical history includes Alzheimer's and dementia. EMS states that the patient is at her baseline. Nurse does not know whether the patient has a history of seizures. Source of History: patient History Limited By: AMS (Alzheimer's) Onset: Recent Position: other (Global) Modifying Factors (Relieving): other (None) Review of Systems ROS is limited due to an altered mental state secondary to Alzheimer's. Past Medical & Surgical Medical Problems: (1) Alzheimers disease (2) Dementia (3) Incontinence (4) pneumonia, fall, dementia (5) possible seizure (6) Tremor Family History No pertinent family history Social History Smoking Status: Never Smoker Alcohol Use: none Marital Status: single Housing Status: [facility] Occupation Status: disabled Current/Historical Medications Scheduled Acetaminophen (Tylenol), 650 MG PO AMHS Aspirin (Aspirin 81), 81 MG PO QAM Bisacodyl (Dulcolax), 1 SUPP DE EVERY 3 DAYS Ciprofloxacin Hcl (Cipro), 1 TAB PO BID Fluticasone Propionate (Flovent Hfa), 1 PUFFS INH BID Levetiracetam (Keppra), 1 TAB PO BID Levothyroxine Sodium (Synthroid), 25 MCG PO QAM Memantine (Namenda), 10 MG PO AMHS Mirtazapine (Mirtazapine), 7.5 MG PO HS Multivitamins/Minerals (Cerovite Advanced Formula), 1 TAB PO DAILY Nitrofurantoin Monohyd Macrocr (Macrobid), 100 MG PO BID Senna (Senokot), 3 TAB PO BID Scheduled PRN Acetaminophen (Tylenol), 650 MG PO Q4H PRN for Pain or Fever Allergies Coded Allergies: Latex (Unverified Allergy, Unknown, ., 12/26/15) Sulfadiazine (Unverified Allergy, Unknown, ., 06/25/15) Physical Exam Vital Signs Date Time Temp Pulse Resp B/P (MAP) Pulse Ox O2 Delivery O2 Flow Rate FiO2 09/08/17 10:22 115 20 156/93 95 09/08/17 08:20 118 20 142/94 96 Room Air 09/08/17 07:18 110 09/08/17 07:15 94 Room Air 09/08/17 07:15 36.6 112 16 144/87 94 Room Air Physical Exam GENERAL: Awake, alert, well-appearing, in no acute distress HENT: Normocephalic, atraumatic. Oropharynx unremarkable. EYES: Normal conjunctiva. Sclera non-icteric. NECK: Supple. No nuchal rigidity. FROM. No JVD. RESPIRATORY: Clear to auscultation. CARDIAC: Regular rate, normal rhythm. Extremities warm and well perfused. Pulses equal. ABDOMEN: Soft, non-distended. No tenderness to palpation. No rebound or guarding. No masses. RECTAL: Deferred. MUSCULOSKELETAL: Chest examination reveals no tenderness. The back is symmetrical on inspection without obvious abnormality. There is no CVA tenderness to palpation. No joint edema. LOWER EXTREMITIES: Calves are equal size bilaterally and non-tender. No edema. No discoloration. NEURO: Normal sensorium. No sensory or motor deficits noted. SKIN: No rash or jaundice noted. PSYCH: Opens eyes to voice. Does not answer questions. Does not follow commands. Medical Decision & Procedures ER Provider Diagnostic Interpretation: Radiology results as stated below per my review and radiologist interpretation: CT HEAD WITHOUT CONTRAST (CT) CLINICAL HISTORY: Acute change in mental status COMPARISON STUDY: August 29, 2017 TECHNIQUE: Axial CT of the brain is performed from the vertex to the skull base. IV contrast was not administered for this examination. A dose lowering technique was utilized adhering to the principles of ALARA. CT DOSE: 1302.24 mGy.cm FINDINGS: No intra or extra-axial mass lesions are visualized. There is no CT evidence of acute cortical infarction. There is no evidence of midline shift. There is no acute hemorrhage. No calvarial fractures are visualized. There are patchy white matter hypodensities likely on a small vessel basis. There is stable ventricular dilatation finding which is felt to be secondary to global volume loss There is no evidence of acute sinusitis IMPRESSION: No acute intracranial findings Electronically signed by: Laureano Murphy M.D. 09/08/2017 8:15 AM Laboratory Results 09/08/17 07:40 Red Blood Count 4.28, Mean Corpuscular Volume 94.2, Mean Corpuscular Hemoglobin 30.4, Mean Corpuscular Hemoglobin Concent 32.3, Mean Platelet Volume 8.3, Neutrophils (%) (Auto) 73.9, Lymphocytes (%) (Auto) 14.3, Monocytes (%) (Auto) 5.4, Eosinophils (%) (Auto) 5.8, Basophils (%) (Auto) 0.3, Neutrophils # (Auto) 5.07, Lymphocytes # (Auto) 0.98, Monocytes # (Auto) 0.37, Eosinophils # (Auto) 0.40, Basophils # (Auto) 0.02 09/08/17 07:40 Test 09/08/17 07:40 09/08/17 07:48 White Blood Count 6.86 K/uL (4.8-10.8) Red Blood Count 4.28 M/uL (4.2-5.4) Hemoglobin 13.0 g/dL (12.0-16.0) Hematocrit 40.3 % (37-47) Mean Corpuscular Volume 94.2 fL (80-100) Mean Corpuscular Hemoglobin 30.4 pg (25-34) Mean Corpuscular Hemoglobin Concent 32.3 g/dl (32-36) Platelet Count 275 K/uL (130-400) Mean Platelet Volume 8.3 fL (7.4-10.4) Neutrophils (%) (Auto) 73.9 % Lymphocytes (%) (Auto) 14.3 % Monocytes (%) (Auto) 5.4 % Eosinophils (%) (Auto) 5.8 % Basophils (%) (Auto) 0.3 % Neutrophils # (Auto) 5.07 K/uL (1.4-6.5) Lymphocytes # (Auto) 0.98 K/uL (1.2-3.4) Monocytes # (Auto) 0.37 K/uL (0.11-0.59) Eosinophils # (Auto) 0.40 K/uL (0-0.5) Basophils # (Auto) 0.02 K/uL (0-0.2) RDW Standard Deviation 48.0 fL (36.4-46.3) RDW Coefficient of Variation 14.0 % (11.5-14.5) Immature Granulocyte % (Auto) 0.3 % Immature Granulocyte # (Auto) 0.02 K/uL (0.00-0.02) Prothrombin Time 11.2 SECONDS (9.0-12.0) Prothromb Time International Ratio 1.1 (0.9-1.1) Activated Partial Thromboplast Time 24.7 SECONDS (21.0-31.0) Partial Thromboplastin Ratio 1.0 Urine Color DK YELLOW Urine Appearance CLEAR (CLEAR) Urine pH 6.0 (4.5-7.5) Urine Specific [place] 1.022 (1.000-1.030) Urine Protein NEG (NEG) Urine Glucose (UA) NEG (NEG) Urine Ketones TRACE (NEG) Urine Occult Blood NEG (NEG) Urine Nitrite NEG (NEG) Urine Bilirubin NEG (NEG) Urine Urobilinogen NEG (NEG) Urine Leukocyte Esterase TRACE (NEG) Urine WBC (Auto) 1-5 /hpf (0-5) Urine RBC (Auto) 5-10 /hpf (0-4) Urine Hyaline Casts (Auto) 10-30 /lpf (0-5) Urine Epithelial Cells (Auto) 20-30 /lpf (0-5) Urine Bacteria (Auto) NEG (NEG) Anion Gap 7.0 mmol/L (3-11) Estimated GFR () 92.5 Estimated GFR (Non- 79.8 BUN/Creatinine Ratio 31.6 (10-20) Calcium Level 9.3 mg/dl (8.5-10.1) Phosphorus Level 2.9 mg/dl (2.5-4.9) Magnesium Level 2.0 mg/dl (1.8-2.4) Thyroid Stimulating Hormone (TSH) 1.950 uIu/ml (0.300-4.500) Bedside Glucose 112 mg/dl (70-90) Labs reviewed by ED physician. Medications Administered Medications (Trade) Dose Ordered Sig/Don Route Start Time Stop Time Status Last Admin Dose Admin Levetiracetam 1000 mg/Dextrose 110 ml @ 440 mls/hr ONE STAT IV 09/08/17 07:21 09/08/17 07:35 DC 09/08/17 07:53 440 MLS/HR Sodium Chloride 1,000 ml @ 999 mls/hr Q1H1M STAT IV 09/08/17 08:00 09/08/17 09:00 DC 09/08/17 08:27 999 MLS/HR Ceftriaxone Sodium (Rocephin Inj) 1 gm NOW STAT IV 09/08/17 08:00 09/08/17 08:03 DC 09/08/17 08:27 1 GM ECG Per My Interpretation Indication: altered mental status, other (Seizure) Rate (beats per minute): 112 Rhythm: sinus tachycardia Findings: no acute ischemic change, no ectopy ED Course 0715: Past medical records reviewed. The patient was evaluated in room B9. A complete history and physical examination was performed. 0721: Levetiracetam 1000mg/Dextrose 110ml @ 440 mls/hr IV 0800: Rocephin Inj 1gm IV and Sodium Chloride 1000 ml @ 999 mls/hr IV 0856: I spoke with the patient's brother, Laz Fall. His phone number is . He states that the patient has had 3 seizures this year already. He adds that this is the first time in her life she has had seizures. I recommended putting the patient on an anti-epileptic medication with close follow-up with neurology. The patient's brother was agreeable. 0915: Upon reexamination the patient is resting comfortably. I discussed results and treatment plan with the patient. She verbalizes agreement and understanding. The patient is ready for discharge. Medical Decision Differential diagnosis: Etiologies such as infection, hypoglycemia, electrolyte abnormalities, cardiac sources, intracerebral event, trauma, toxicologic, neurologic, as well as others were entertained. This is a 67-year-old female who presents to the emergency department with seizure-like activity that lasted approximately 10 minutes this morning. Talking to the patient's friend as well as her brother via telephone the patient appears to be back at her baseline. They noted that this is the third seizure that this patient has had this year. Based on this finding I loaded the patient with IV Keppra and will place her on Keppra. She continues to have what appears to be a urinary tract infection. Based on the previous results I will place the patient on Cipro. She was also given IV fluids in the emergency department. As the patient does not appear to be in any acute distress and appears to be back to baseline I feel she can be [facility] I did contact case management to get the patient in with neurology for close follow-up. Family was in agreement with treatment plan. Medication Reconcilliation Current Medication List: was personally reviewed by me Blood Pressure Screening Patient's blood pressure: Elevated blood pressure Blood pressure disposition: Referred to PCP Impression Primary Impression: Seizure Scribe Attestation The scribe's documentation has been prepared under my direction and personally reviewed by me in its entirety. I confirm that the note above accurately reflects all work, treatment, procedures, and medical decision making performed by me. Departure Information Dispostion Home / Self-Care Prescriptions Ciprofloxacin Hcl (CIPRO) 500 Mg Tab 1 TAB PO BID for 10 Days, #20 TAB Prov: Kenny Blum MD 09/08/17 Levetiracetam (KEPPRA) 1,000 Mg Tab 1 TAB PO BID for 30 Days, #60 TAB Prov: Kenny Blum MD 09/08/17 Referrals Itzel Bourgeois D.ODora (PCP) Forms HOME CARE DOCUMENTATION FORM, IMPORTANT VISIT INFORMATION Patient Instructions ED Seizure New Onset Unk Cause, ED UTI Cystitis Female, My [facility] Additional Instructions Need follow up with Dr Kerr's office (Neuro) Culture results are usually available in approx 48 hours You have been examined and treated today on an emergency basis only. This is not a substitute for, or an effort to provide, complete comprehensive medical care. It is impossible to recognize and treat all injuries or illnesses in a single emergency department visit. It is therefore important that you follow up closely with Dr Bourgeois. Call as soon as possible for an appointment. Thank you for your time and consideration. I look forward to speaking with you again soon. Please don't hesitate to call us if you have any questions.
[2017-09-08 07:53] LABS: BASO % 0.3 %; BASO ABS # 0.02 K/uL (0-0.2); EOS % 5.8 %; HEMATOCRIT 40.3 % (37-47); IG# 0.02 K/uL (0.00-0.02); LYMPH % 14.3 %; LYMPH ABS # 0.98 K/uL (1.2-3.4); MEAN CELL VOLUME 94.2 fL (80-100); MEAN CORPUSCULAR HEMOGLOBIN 30.4 pg (25-34); MEAN CORPUSCULAR HGB CONC 32.3 g/dl (32-36); MEAN PLATELET VOLUME 8.3 fL (7.4-10.4); MONO % 5.4 %; MONO ABS # 0.37 K/uL (0.11-0.59); NEUT % 73.9 %; NEUT ABS # 5.07 K/uL (1.4-6.5); PLATELET COUNT 275 K/uL (130-400); WHITE BLOOD COUNT 6.86 K/uL (4.8-10.8)
[2017-09-08] MEDS ORDERED: CEFTRIAXONE SOD INJ 1 GM ADDVIAL IV STA (08:00)
[2017-09-08] MEDS ORDERED: SODIUM CHLORIDE 0.9% 1000ML 1,000 ML IV STA (08:00)
[2017-09-08 08:02] LABS: INR 1.1 (0.9-1.1); PTT PATIENT 24.7 SECONDS (21.0-31.0)
--- NOTE | 2017-09-08 08:17 | DIAGNOSTIC IMAGING REPORT ---
CT HEAD WITHOUT CONTRAST (CT) CLINICAL HISTORY: Acute change in mental status COMPARISON STUDY: August 29, 2017 TECHNIQUE: Axial CT of the brain is performed from the vertex to the skull base. IV contrast was not administered for this examination. A dose lowering technique was utilized adhering to the principles of ALARA. CT DOSE: 1302.24 mGy.cm FINDINGS: No intra or extra-axial mass lesions are visualized. There is no CT evidence of acute cortical infarction. There is no evidence of midline shift. There is no acute hemorrhage. No calvarial fractures are visualized. There are patchy white matter hypodensities likely on a small vessel basis. There is stable ventricular dilatation finding which is felt to be secondary to global volume loss There is no evidence of acute sinusitis IMPRESSION: No acute intracranial findings Electronically signed by: Laureano Murphy M.D. 09/08/2017 8:15 AM Dictated Date/Time: 09/08/2017 8:14 AM
[2017-09-08 08:26] LABS: BLOOD UREA NITROGEN 25 mg/dl (7-18); CALCIUM 9.3 mg/dl (8.5-10.1); CARBON DIOXIDE 29 mmol/L (21-32); CREATININE 0.78 mg/dl (0.60-1.20); GLUCOSE 115 mg/dl (70-99); SODIUM 141 mmol/L (136-145)
[2017-09-08 08:36] LABS: PHOSPHORUS 2.9 mg/dl (2.5-4.9)
[2017-09-08] MEDS ORDERED: KPP/1000 PO (08:59)
[2017-09-08] MEDS ORDERED: CIPR-255 PO (08:59)
[2017-09-08 10:22] VITALS: BP 156/93; PULSE 115; O2SAT 95
== END 2017-09-08 10:43 | disposition home or self-care (01) ==
LOC: EDBD 07:12 → C.EDB 07:14
DX: R56.9 Unspecified convulsions (principal); N39.0 Urinary tract infection, site not specified; G30.9 Alzheimer's disease, unspecified; F02.80 Dementia in other diseases classified elsewhere, unspecified severity, without behavioral disturbance, psychotic disturbance, mood disturbance, and anxiety; Z79.82 Long term (current) use of aspirin; Z91.040 Latex allergy status; Z88.2 Allergy status to sulfonamides